=== PATIENT | female | born 1945 | race African-American/Black ===

== ENCOUNTER 2025-01-16 13:06 | Emergency (ER) | payer MEDICARE, MEDICAID ==
[~2025-01-16] VITALS: Ht 167.6 cm; Wt 61.0 kg
[2025-01-16 13:41] VITALS: O2SAT 97
[2025-01-16] MEDS: FLUORESCEIN SODIUM 1MG/STRIP BOTHEYE ONE (15:45)
[2025-01-16] MEDS: TETRACAINE 0.5% OPHTH DROPS 4ML BOTHEYE ONE (15:45)
[2025-01-16 17:40] VITALS: BP 130/76; PULSE 83; RESP 16; TEMP 36.9; O2SAT 97
== END 2025-01-16 17:41 | disposition home or self-care (01) ==
LOC: ER 13:06
DX: H57.89 Other specified disorders of eye and adnexa (principal); I10 Essential (primary) hypertension
CPT/HCPCS: 99283